=== PATIENT | male | born 1960 | race Caucasian/White ===

== ENCOUNTER 2019-01-24 01:25 | Emergency (ER) | payer MEDICARE ==
[~2019-01-24] VITALS: Ht 170.2 cm; Wt 68.0 kg
[~2019-01-24 01:25] MED LIST: CARB200; CHLO25 PO; DILANTIN; HYDACE10B PO; HYDACE5325 PO; OMEP20ER PO; OXYACE5T PO; RXHYD5325 PO; Roxicodone5 MG PO
== END 2019-01-24 04:30 | disposition home or self-care (01) ==
LOC: ER 01:25
DX: F10.10 Alcohol abuse, uncomplicated (principal); Z79.899 Other long term (current) drug therapy
CPT/HCPCS: 99282

== ENCOUNTER 2019-01-24 07:18 | Emergency (ER) | payer MEDICARE ==
[~2019-01-24] VITALS: Ht 170.2 cm; Wt 68.0 kg
== END 2019-01-24 07:52 | disposition left against medical advice (07) ==
LOC: ER 07:18
DX: Z53.21 Procedure and treatment not carried out due to patient leaving prior to being seen by health care provider (principal)

== ENCOUNTER 2019-04-17 06:02 | Emergency (ER) | payer MEDICARE ==
[~2019-04-17] VITALS: Ht 167.6 cm; Wt 65.8 kg
== END 2019-04-17 06:20 ==
LOC: ER 06:02
DX: F10.129 Alcohol abuse with intoxication, unspecified (principal); F17.200 Nicotine dependence, unspecified, uncomplicated
CPT/HCPCS: 99282

== ENCOUNTER 2024-08-15 17:00 | Inpatient (IN) | payer MEDICARE ==
[~2024-08-15] VITALS: Ht 167.6 cm; Wt 58.2 kg
[~2024-08-15 17:00] MED LIST changes: +Colace250 MG PO; +HYDR1TAB94 PO; +METO25ER PO; +NICO21TP TOP; +WARF5 PO
[2024-08-15 17:56] LABS: BASOPHILS ABSOLUTE AUTO 0.09 K/mm3 (0.00-0.23); BASOPHILS PERCENT AUTO 2 % (0-2); EOSINOPHILS ABSOLUTE AUTO 0.09 K/mm3 (0.00-0.68); EOSINOPHILS PERCENT AUTO 2 % (0-6); Hematocrit 39.9 % (37.0-53.0); Hemoglobin 13.9 g/dL (13.5-17.5); IMMATURE GRAN ABSOLUTE AUTO 0.03 K/mm3 (0.00-0.10); IMMATURE GRAN PERCENT AUTO 1 % (0-1); LYMPHOCYTES ABSOLUTE AUTO 0.34 K/mm3 (0.84-5.20); LYMPHOCYTES PERCENT AUTO 9 % (21-46); MONOCYTES ABSOLUTE AUTO 0.52 K/mm3 (0.16-1.47); MONOCYTES PERCENT AUTO 14 % (4-13); Mean Corpuscular HGB 31.6 pg (26.0-34.0); Mean Corpuscular HGB Conc 34.8 g/dL (31.5-36.5); Mean Corpuscular Volume 91 fL (80-100); Mean Platelet Volume 12.7 fL (9.1-12.4); NEUTROPHILS ABSOLUTE AUTO 2.68 K/mm3 (1.96-9.15); NEUTROPHILS PERCENT AUTO 71 % (41-73); Platelet Count 70 K/mm3 (150-400); RDW Coefficient Variation 17.4 % (11.7-14.2); RDW Standard Deviation 57.5 fL (35.1-46.3); White Blood Cell Count 3.75 K/mm3 (4.00-11.30)
[2024-08-15 18:15] LABS: Albumin, Blood 2.9 g/dL (3.4-5.0); Albumin/Globulin Ratio 0.6 (0.8-1.8); Bun/Creatinine Ratio 20.8 (12.0-20.0); Calcium, Blood 9.5 mg/dL (8.5-10.1); Creatinine, Blood 0.77 mg/dL (0.60-1.20); Potassium, Blood 4.2 mmol/L (3.5-5.5); Total Protein, Blood 7.9 g/dL (6.4-8.2)
[2024-08-15] MEDS ORDERED: PHENobarbitaL sodium 130 MG/ML VIAL IV ONE ×2 (19:20→21:20)
[2024-08-15 19:37] LABS: International Normalized Ratio 1.43; Prothrombin Time Results 14.9 Sec (9.7-11.5)
[2024-08-15 19:44] LABS: Ethanol (Alcohol), Blood, Med <3 mg/dL
[2024-08-15 19:57] LABS: Acetaminophen, Random <2.0 ug/mL (10.0-30.0); Salicylate <1.7 mg/dL (2.8-20.0)
[2024-08-15] MEDS ORDERED: PHENobarbital Sodium 65MG / ML 1ML Vial IV ONE (23:10)
[2024-08-15] MEDS ORDERED: FLU VACC TS2024-25(6MOS UP)/PF 45 MCG/0.5 ML SYRINGE IM ONE (23:35)
[2024-08-15] MEDS ORDERED: ChlordiazePOXIDE 25 MG Cap PO PRN ×2 (23:35→23:40)
[2024-08-15] MEDS ORDERED: LORazepam 2 MG/ML 1ML Injection IV PRN (23:40)
[2024-08-16] VITALS (7 sets, daily range): BP systolic 92–115; BP diastolic 59–88
[2024-08-16] MEDS ORDERED: Thiamine HCl 100 MG in NS 50 ML IV SCH (00:14)
[2024-08-16] MEDS ORDERED: Folic Acid 1 MG in NS 50 ML IV SCH (00:14)
[2024-08-16] MEDS ORDERED: LORazepam 2 MG/ML 1ML Injection IV PRN ×2 (01:00)
[2024-08-16] MEDS ORDERED: NS 1,000 ML IV SCH (01:00)
[2024-08-16] MEDS ORDERED: NS 250 ML IV PRN (01:30)
--- NOTE | 2024-08-16 01:33 | NUR ---
ASSUMED CARE PT IS ALERT AND ORIENTED X2-3; PT BELIEVED HE WAS IN [facility] INITIALLY, WAS REORIENTED, AND NOW CORRECTLY STATES LOCATION. PT FOLLOWS COMMANDS APPROPRIATELY AND IS ABLE TO MAKE NEEDS KNOWN. DENIES CP, SOB, AND NAUSEA AT THIS TIME; CIWA <8. RESTING QUIETLY WATCHING TV AT THIS TIME W/ BED ALARM ON. PT STATES LAST DRINK WAS 2 DAYS AGO, BUT THEN STATES THAT HE HAS BEEN IN [facility] FOR 4 DAYS; CLARIFIED HE HASN'T DRANK SINCE BEFORE HE WAS JAILED.
--- NOTE | 2024-08-16 01:36 | NUR ---
ADMISSION HX ADMISSION HX COMPLETE PER PT, BUT PT IS POOR HISTORIAN.
[2024-08-16 01:56] LABS: BASOPHILS ABSOLUTE AUTO 0.06 K/mm3 (0.00-0.23); BASOPHILS PERCENT AUTO 2 % (0-2); EOSINOPHILS ABSOLUTE AUTO 0.08 K/mm3 (0.00-0.68); EOSINOPHILS PERCENT AUTO 3 % (0-6); Hematocrit 36.2 % (37.0-53.0); Hemoglobin 12.6 g/dL (13.5-17.5); IMMATURE GRAN ABSOLUTE AUTO 0.02 K/mm3 (0.00-0.10); IMMATURE GRAN PERCENT AUTO 1 % (0-1); LYMPHOCYTES ABSOLUTE AUTO 0.33 K/mm3 (0.84-5.20); LYMPHOCYTES PERCENT AUTO 12 % (21-46); MONOCYTES ABSOLUTE AUTO 0.43 K/mm3 (0.16-1.47); MONOCYTES PERCENT AUTO 16 % (4-13); Mean Corpuscular HGB 31.8 pg (26.0-34.0); Mean Corpuscular HGB Conc 34.8 g/dL (31.5-36.5); Mean Corpuscular Volume 91 fL (80-100); NEUTROPHILS ABSOLUTE AUTO 1.86 K/mm3 (1.96-9.15); NEUTROPHILS PERCENT AUTO 67 % (41-73); Platelet Count 54 K/mm3 (150-400); RDW Coefficient Variation 17.6 % (11.7-14.2); RDW Standard Deviation 58.3 fL (35.1-46.3); Red Blood Cell Count 3.96 M/mm3 (4.30-5.90); White Blood Cell Count 2.78 K/mm3 (4.00-11.30)
[2024-08-16 02:19] LABS: Magnesium, Blood 1.2 mg/dL (1.6-2.4)
[2024-08-16 02:46] LABS: Creatinine, Blood 0.63 mg/dL (0.60-1.20); Potassium, Blood 3.1 mmol/L (3.5-5.5); Total Protein, Blood 7.1 g/dL (6.4-8.2)
[2024-08-16 02:47] LABS: Albumin, Blood 2.7 g/dL (3.4-5.0); Albumin/Globulin Ratio 0.6 (0.8-1.8); Globulin, Blood 4.4 g/dL (2.2-4.0)
[2024-08-16] MEDS ORDERED: Potassium Chl 20MEQ/Water100ML 100 ML IV ONE (02:55)
[2024-08-16] MEDS ORDERED: Magnesium Sulf 2 GM/Water 50ML 50 ML IV ONE (02:55)
[2024-08-16 02:57] LABS: Bilirubin, Total 16.7 mg/dL (0.1-1.0); Bun/Creatinine Ratio 22.2 (12.0-20.0)
--- NOTE | 2024-08-16 06:26 | NUR ---
SHIFT SUMMARY NO ACUTE EVENTS SINCE LAST NOTE. PT EASILY REORIENTABLE, CALM, AND COOPERATIVE. CIWA CONTINUES TO REMAIN <8 AT THIS TIME. FOLLOWS COMMANDS AND MAKES NEEDS KNOWN.
--- NOTE | 2024-08-16 08:00 | NUR ---
ASSUMPTION OF CARE THIS RN ASSUMED CARE OF PT AT 0700 THIS AM FOLLOWING BEDSIDE SHIFT REPORT WITH NOC RN. UPON INITIAL ASSESSMENT, PT IS DOING WELL. ALERT & ORIENTED, PLEASANT. SLIGHTLY TACHY WITH HR 100'S. BP STABLE. TOLERATING REGULAR DIET, EATING INDEPENDENTLY. PT LABS APPEAR PANCYTOPENIC - MD NOTIFIED. FOLLOW UP LABS ORDERED AND DRAWN.
[2024-08-16] MEDS ORDERED: Enoxaparin 40 MG/0.4 ML SYR SC SCH (09:00)
[2024-08-16] MEDS ORDERED: Nicotine 21 MG PATCH TOP SCH (09:00)
[2024-08-16 11:56] LABS: Bun/Creatinine Ratio 16.7 (12.0-20.0); Calcium, Blood 8.6 mg/dL (8.5-10.1); Creatinine, Blood 0.66 mg/dL (0.60-1.20); Magnesium, Blood 1.5 mg/dL (1.6-2.4); Potassium, Blood 3.1 mmol/L (3.5-5.5)
[2024-08-16 13:31] LABS: U Amphetamine Screen DETECTED; U Methamphetamine Screen DETECTED
[2024-08-16 13:32] LABS: U Barbituate Screen DETECTED; U Benzodiazapine Screen DETECTED; U Buprenorphine Screen Not Detected; U Cannabinoids Screen Not Detected; U Cocaine Screen Not Detected; U Methadone Screen Not Detected; U Opiates Screen Not Detected; U Oxycodone Screen Not Detected; U Phencyclidine Screen Not Detected
[2024-08-16] MEDS ORDERED: Magnesium Sulf 2 GM/Water 50ML 50 ML IV STA (14:29)
[2024-08-16] MEDS ORDERED: Potassium Chl 20MEQ/Water100ML 100 ML IV SCH (14:30)
[2024-08-16] MEDS ORDERED: OxyCODONE HCL 5 MG TAB PO PRN (15:20)
[2024-08-16] MEDS ORDERED: Acetaminophen 325 MG TABLET PO PRN (15:20)
[2024-08-16 15:35] LABS: Percent Saturation 58.8 % (20.0-50.0)
--- NOTE | 2024-08-16 17:36 | NUR ---
SHIFT SUMMARY: - DOWNGRADE TO MEDICAL WITH TELE - SR-ST ON TELE - PAIN MEDS ADDED PRN D/T RUQ PAIN, PAIN LEVEL DECREASE FROM 5 TO 2 WITH TYLENOL. - ELECTROLYTE REPLACEMENTS TODAY. TOTAL OF 2GM MAGNESIUM, 60 MEQ KCL - OLIGURIC, DARK URINE. - ACUTE PANCYTOPENIA, MD AWARE. FOLLOW UP LABS DONE.
[2024-08-17 03:46] VITALS: BP 94/76
[2024-08-17 05:16] LABS: BASOPHILS ABSOLUTE AUTO 0.11 K/mm3 (0.00-0.23); BASOPHILS PERCENT AUTO 3 % (0-2); EOSINOPHILS PERCENT AUTO 3 % (0-6); Hematocrit 33.9 % (37.0-53.0); Hemoglobin 11.6 g/dL (13.5-17.5); IMMATURE GRAN ABSOLUTE AUTO 0.01 K/mm3 (0.00-0.10); IMMATURE GRAN PERCENT AUTO 0 % (0-1); LYMPHOCYTES ABSOLUTE AUTO 0.33 K/mm3 (0.84-5.20); LYMPHOCYTES PERCENT AUTO 10 % (21-46); MONOCYTES ABSOLUTE AUTO 0.53 K/mm3 (0.16-1.47); MONOCYTES PERCENT AUTO 16 % (4-13); Mean Corpuscular HGB 31.6 pg (26.0-34.0); Mean Corpuscular HGB Conc 34.2 g/dL (31.5-36.5); Mean Corpuscular Volume 92 fL (80-100); NEUTROPHILS ABSOLUTE AUTO 2.15 K/mm3 (1.96-9.15); NEUTROPHILS PERCENT AUTO 67 % (41-73); Platelet Count 60 K/mm3 (150-400); RDW Coefficient Variation 17.9 % (11.7-14.2); RDW Standard Deviation 59.6 fL (35.1-46.3); Red Blood Cell Count 3.67 M/mm3 (4.30-5.90); White Blood Cell Count 3.23 K/mm3 (4.00-11.30)
[2024-08-17 05:21] LABS: Mean Platelet Volume 12.8 fL (9.1-12.4)
[2024-08-17 05:37] LABS: Albumin, Blood 2.1 g/dL (3.4-5.0); Anion Gap 12 mmol/L (3-11); Blood Urea Nitrogen 12 mg/dL (8-24); CO2, Blood 20 mmol/L (21-32); Chloride, Blood 103 mmol/L (98-108); Creatinine, Blood 0.52 mg/dL (0.60-1.20); Glomerular Filtration Rate 113 (60-); Glucose, Blood 105 mg/dL (70-99); Magnesium, Blood 1.6 mg/dL (1.6-2.4); Phosphorus, Blood 2.3 mg/dL (2.5-4.9); Potassium, Blood 3.9 mmol/L (3.5-5.5); Sodium, Blood 131 mmol/L (136-145)
[2024-08-17 07:13] VITALS: BP 104/78
[2024-08-17] MEDS ORDERED: Sodium Phosphate 15 MM in Dextrose 5% 250 ML IV STA (08:12)
[2024-08-17] MEDS ORDERED: TM-VITE RX T1000 MCG PO (14:04)
[2024-08-17 17:01] LABS: HEPATITIS A ANTIBODY, IGM Negative (Negative); HEPATITIS B CORE ANTIBODY, IGM Negative (Negative); HEPATITIS B SURFACE ANTIGEN Negative (Negative); HEPATITIS C AB CIA INTERP Negative (Negative); HEPATITIS C ANTIBODY CIA INDEX 0.09 IV
--- NOTE | 2024-08-17 17:35 | NUR ---
DISHCARGE NOTE PATIENT A/OX3, ABLE TO MAKE NEEDS KNOWN. UNAWARE OF DATE TODAY, BUT KNEW WHAT YEAR AND MONTH. CIWA SCORE OF 3 THIS AM, BILATERAL UPPER ARM TREMORS NOTED. DENIES PAIN THIS SHIFT. TELEMETRY, PIV, AND POWERGLIDE REMOVED PRIOR TO DISCHARGE. PACE MANAGER M[employer]UAL FUND EDUCATED PATIENT REGARDING ALCOHOL DETOX PROGRAMS AND ALSO INFORMED GUEST SERVICES AGENT THAT HE WISHES TO DISCHARGE TO HIS BROTHER'S HOUSE IN [place]. PATIENT REQUESTED MEDICATION PRESCRIPTIONS BE SENT TO [facility], MEDS FAXED. PATIENT EDUCATED REGARDING NEEDING PRIMARY CARE PROVIDER AND TO SET UP AN APPOINTMENT WITHIN 1-2 WEEKS AND TO TAKE MEDICATIONS PRESCIRBED, INCLUDING VITAMINS. PATIENT AGREEABLE TO PLAN. NO OTHER CONCERNS AT THIS TIME. PATIENT WHEELED TO [facility] VIA [facility] STAFF.
== END 2024-08-17 17:25 | disposition home or self-care (01) | DRG 897 ==
LOC: ER 17:00 → PCU 17:01 → ERHOLD 17:01 → PCU 08-16 00:35 → MEDS 08-16 14:48 → PCU 08-16 14:49 → MEDS 08-16 22:14
PROVIDERS: Emergency Medicine; Family Medicine; Student in an Organized Health Care Education/Training Program; ADMIT Internal Medicine
DX: F10.239 Alcohol dependence with withdrawal, unspecified (principal); D61.818 Other pancytopenia; K76.6 Portal hypertension; K70.31 Alcoholic cirrhosis of liver with ascites; E87.6 Hypokalemia; S01.112A Laceration without foreign body of left eyelid and periocular area, initial encounter; K80.20 Calculus of gallbladder without cholecystitis without obstruction; E83.42 Hypomagnesemia; D69.6 Thrombocytopenia, unspecified; M54.2 Cervicalgia; Y90.0 Blood alcohol level of less than 20 mg/100 ml; G89.29 Other chronic pain; F17.210 Nicotine dependence, cigarettes, uncomplicated; Z98.890 Other specified postprocedural states; W10.9XXA Fall (on) (from) unspecified stairs and steps, initial encounter
CPT/HCPCS: 36415; 70450; 72125; 76705; 80048; 80053; 80069; 80074; 80320; 82140; 82728; 83540; 83550; 83690; 83735; 85025; 85610; 85730; 93005; 93010; 96365; 96372; 96374; 96375; 96376; 99285-25; A9270; C1751; G0378; G0480; J1650; J2560; J3411; J3475; J3480; J7050; J7060

== ENCOUNTER 2024-08-19 16:44 | Inpatient (IN) | payer MEDICARE ==
[~2024-08-19] VITALS: Ht 167.6 cm; Wt 70.8 kg
[~2024-08-19 16:44] MED LIST changes: +TM-VITE RX T1000 MCG PO
[2024-08-19 17:18] LABS: BASOPHILS PERCENT AUTO 2 % (0-2); EOSINOPHILS ABSOLUTE AUTO 0.13 K/mm3 (0.00-0.68); EOSINOPHILS PERCENT AUTO 2 % (0-6); Hematocrit 35.7 % (37.0-53.0); Hemoglobin 12.5 g/dL (13.5-17.5); IMMATURE GRAN ABSOLUTE AUTO 0.04 K/mm3 (0.00-0.10); IMMATURE GRAN PERCENT AUTO 1 % (0-1); LYMPHOCYTES ABSOLUTE AUTO 0.51 K/mm3 (0.84-5.20); LYMPHOCYTES PERCENT AUTO 9 % (21-46); MONOCYTES ABSOLUTE AUTO 0.77 K/mm3 (0.16-1.47); MONOCYTES PERCENT AUTO 14 % (4-13); Mean Corpuscular HGB 31.8 pg (26.0-34.0); Mean Corpuscular Volume 91 fL (80-100); Mean Platelet Volume 12.2 fL (9.1-12.4); NEUTROPHILS ABSOLUTE AUTO 3.95 K/mm3 (1.96-9.15); NEUTROPHILS PERCENT AUTO 72 % (41-73); Platelet Count 118 K/mm3 (150-400); RDW Coefficient Variation 18.7 % (11.7-14.2); Red Blood Cell Count 3.93 M/mm3 (4.30-5.90)
[2024-08-19] MEDS ORDERED: CefTRIAXone Sodium 2,000 MG in NS 100 ML IV ONE (17:25)
[2024-08-19 17:33] LABS: Albumin, Blood 2.3 g/dL (3.4-5.0); Albumin/Globulin Ratio 0.5 (0.8-1.8); Bilirubin, Total 13.4 mg/dL (0.1-1.0); Bun/Creatinine Ratio 16.5 (12.0-20.0); Calcium, Blood 7.7 mg/dL (8.5-10.1); Creatinine, Blood 0.73 mg/dL (0.60-1.20); Globulin, Blood 4.4 g/dL (2.2-4.0); Potassium, Blood 3.1 mmol/L (3.5-5.5); Total Protein, Blood 6.7 g/dL (6.4-8.2)
[2024-08-19 17:34] LABS: Source, Urine Clean Catch
[2024-08-19 17:45] LABS: Blood, Urine 1+ (Neg); Color, Urine Amber (P-Yellow); Glucose Qualitative, Urine Neg (Neg); Ketones, Urine Neg (Neg); Leukocyte Esterase, Urine 1+ (Neg); Nitrite, Urine Neg (Neg); Protein, Urine 2+ (Neg); Specific Gravity, Urine 1.015 (1.003-1.022); Urobilinogen, Urine 4+ (Normal)
[2024-08-19 17:50] LABS: Bilirubin, Urine 3+ (Neg)
[2024-08-19 17:55] LABS: Appearance, Urine Clear (Clear)
[2024-08-19 17:57] LABS: Bacteria Many /hpf; Squamous Epithelial Cells Rare /hpf (Few)
[2024-08-19 18:01] LABS: International Normalized Ratio 1.24; Prothrombin Time Results 13.1 Sec (9.7-11.5)
[2024-08-19] MEDS ORDERED: NS 1,000 ML IV SCH (18:05)
[2024-08-19 18:06] LABS: Albumin, Blood 2.2 g/dL (3.4-5.0); Albumin/Globulin Ratio 0.5 (0.8-1.8); Bilirubin, Direct 10.9 mg/dL (0.0-0.3); Bilirubin, Total 12.9 mg/dL (0.1-1.0); Globulin, Blood 4.4 g/dL (2.2-4.0); Magnesium, Blood 1.9 mg/dL (1.6-2.4); Phosphorus, Blood 1.9 mg/dL (2.5-4.9); Total Protein, Blood 6.6 g/dL (6.4-8.2)
[2024-08-19 18:54] LABS: U Amphetamine Screen DETECTED; U Barbituate Screen DETECTED; U Benzodiazapine Screen DETECTED; U Buprenorphine Screen Not Detected; U Cannabinoids Screen Not Detected; U Cocaine Screen Not Detected; U Methadone Screen Not Detected; U Methamphetamine Screen DETECTED; U Opiates Screen Not Detected; U Oxycodone Screen Not Detected; U Phencyclidine Screen Not Detected
[2024-08-19 20:09] LABS: Influenza A, PCR NEGATIVE (NEGATIVE); Influenza B, PCR NEGATIVE (NEGATIVE); Resp Syncytial Virus, PCR NEGATIVE (NEGATIVE); SARS-Cov-2 (COVID-19) PCR, MMC NEGATIVE (NEGATIVE)
[2024-08-19] MEDS ORDERED: Lactobacil 2-S.Thermo-Bifido 1 1 Cap PO SCH (21:00)
[2024-08-19] MEDS ORDERED: FLU VACC TS2024-25(6MOS UP)/PF 45 MCG/0.5 ML SYRINGE IM ONE (21:00)
[2024-08-19] MEDS ORDERED: Ondansetron HCl 2 MG / ML 2ML Vial IV PRN (21:00)
[2024-08-19] MEDS ORDERED: Potassium Chloride 20 MEQ/15 ML UDC PO ONE (21:00)
[2024-08-19] MEDS ORDERED: Magnesium Sulf 2 GM/Water 50ML 50 ML IV STA (21:11)
[2024-08-19] MEDS ORDERED: Potassium Chl 20MEQ/Water100ML 100 ML IV SCH (21:30)
[2024-08-19] MEDS ORDERED: Sodium Phosphate 15 MM in Dextrose 5% 250 ML IV SCH (21:30)
[2024-08-19] MEDS ORDERED: Warfarin Sodium 5 MG Tab PO ONE (21:40)
[2024-08-20 05:07] LABS: International Normalized Ratio 1.16; Prothrombin Time Results 12.3 Sec (9.7-11.5)
[2024-08-20 05:39] LABS: BASOPHILS ABSOLUTE AUTO 0.12 K/mm3 (0.00-0.23); BASOPHILS PERCENT AUTO 2 % (0-2); EOSINOPHILS ABSOLUTE AUTO 0.15 K/mm3 (0.00-0.68); EOSINOPHILS PERCENT AUTO 3 % (0-6); Hematocrit 34.5 % (37.0-53.0); Hemoglobin 12.2 g/dL (13.5-17.5); IMMATURE GRAN ABSOLUTE AUTO 0.07 K/mm3 (0.00-0.10); IMMATURE GRAN PERCENT AUTO 1 % (0-1); LYMPHOCYTES ABSOLUTE AUTO 0.41 K/mm3 (0.84-5.20); LYMPHOCYTES PERCENT AUTO 7 % (21-46); MONOCYTES ABSOLUTE AUTO 0.93 K/mm3 (0.16-1.47); MONOCYTES PERCENT AUTO 16 % (4-13); Mean Corpuscular HGB 31.7 pg (26.0-34.0); Mean Corpuscular HGB Conc 35.4 g/dL (31.5-36.5); Mean Corpuscular Volume 90 fL (80-100); NEUTROPHILS ABSOLUTE AUTO 4.27 K/mm3 (1.96-9.15); NEUTROPHILS PERCENT AUTO 72 % (41-73); RDW Coefficient Variation 18.7 % (11.7-14.2); RDW Standard Deviation 61.6 fL (35.1-46.3); Red Blood Cell Count 3.85 M/mm3 (4.30-5.90); White Blood Cell Count 5.95 K/mm3 (4.00-11.30)
[2024-08-20 05:43] LABS: Platelet Count 120 K/mm3 (150-400)
[2024-08-20 08:05] LABS: Albumin, Blood 2.1 g/dL (3.4-5.0); Albumin/Globulin Ratio 0.5 (0.8-1.8); Bilirubin, Total 12.5 mg/dL (0.1-1.0); Bun/Creatinine Ratio 17.6 (12.0-20.0); Calcium, Blood 7.9 mg/dL (8.5-10.1); Creatinine, Blood 0.57 mg/dL (0.60-1.20); Globulin, Blood 4.5 g/dL (2.2-4.0); Magnesium, Blood 1.9 mg/dL (1.6-2.4); Phosphorus, Blood 2.2 mg/dL (2.5-4.9); Potassium, Blood 4.5 mmol/L (3.5-5.5); Total Protein, Blood 6.6 g/dL (6.4-8.2)
[2024-08-20] MEDS ORDERED: Multivitamins 1 Tab PO SCH (09:00)
[2024-08-20] MEDS ORDERED: Thiamine HCl 100 MG Tab PO SCH (09:00)
[2024-08-20] MEDS ORDERED: Folic Acid 1 MG TAB PO SCH (09:00)
[2024-08-20] MEDS ORDERED: CefTRIAXone Sodium 1,000 MG in NS 100 ML IV SCH (18:00)
[2024-08-20] MEDS ORDERED: Warfarin Sodium 5 MG Tab PO ONE (18:00)
[2024-08-20 18:20] VITALS: BP 150/99
--- NOTE | 2024-08-20 19:04 | NUR ---
END OF SHIFT SUMMARY ASSUMED CARE AT 1800. PT ARRIVED VIA WHEELCHAIR, STATES HE NEEDED TO HAVE A BOWEL MOVEMENT. HE WAS ASSISTED TO THE BATHROOM BY THIS RN, PT WAS NOTED TO BE VERY TREMULOUS AND WEAK. BOWEL MOVEMENT WAS LOOSE AND WATERY. PT IS ALERT AND ORIENTED TO SELF, PLACE, AND MONTH, BUT NOT DAY OR TIME. PT DOES NOT KNOW HOW HE GOT HERE OR WHY IS HE IS HERE. PT HAS NOTABLE SKIN AND SCLERA JAUNDICE. HR IN 110S, BP ELEVATED. PT WAS SETTLED INTO BED. ABDOMINAL DISTENTION/ASCITES THAT PT STATES IS NORMAL FOR HIM, MODERATE TENDERNESS IN ABDOMEN. MODERATE MOTTLING NOTED ON BLE. PEDAL PULSES FAINT. NOTED CLUBBING ON FINGERNAILS. CRACKLES HEARD THROUGHOUT ALL LUNG CREWS. CIWA SCORE 12 AT 1845, PT NOT RESTING IN BED COMFORTABLE. GAVE REPORT TO ONCOMING RN.
[2024-08-20 19:29] VITALS: BP 130/93
[2024-08-20] MEDS ORDERED: LORazepam 1 MG Tab PO PRN ×2 (21:15→21:20)
[2024-08-20] MEDS ORDERED: ChlordiazePOXIDE 25 MG Cap PO PRN ×2 (21:15→21:20)
[2024-08-20] MEDS ORDERED: Loperamide HCl 2 MG Cap PO PRN (21:20)
[2024-08-20] MEDS ORDERED: LORazepam 2 MG/ML 1ML Injection IV PRN (21:20)
[2024-08-20] MEDS ORDERED: LORazepam 2 MG/ML 1ML Injection IM PRN (21:20)
[2024-08-20] MEDS ORDERED: Ibuprofen 400 MG Tab PO PRN (21:20)
[2024-08-20] MEDS ORDERED: NS 1,000 ML IV SCH (22:00)
[2024-08-20 23:14] VITALS: BP 119/84
[2024-08-21 04:01] VITALS: BP 121/88
[2024-08-21 04:40] LABS: International Normalized Ratio 2.07
--- NOTE | 2024-08-21 04:56 | NUR ---
SHIFT SUMMARY; NO ACUTE CHANGE FOR THE SHIFT VITALS HAS BEEN STABLE, PT DENIED CEHST PAIN/PRESSURE, PT C/O ABD TENDERNESS WORSENDS WITH TAKING A DEEP BREATH AND COUGHING. PT HAS AMBULATED TO THE BATHROOM 1PA, VIA WALKER. PT HAS BEEB COOPERATIVE AND PLEASANT, A&OX3, CIWA BETWEEN 4-9 MEDICATED ONCE FOR HEADACHE WITH TYLENOL AND LIBRIUM TO HELP WITH THE TREMORS. PFOLEY DRAINING DARK YELLOW/ORANGE URINE VIA GRAVITY, NS STARTED AT 150 MLS/HR. LABS DRANW THIS MORNING AWAITING TO RESULT AT THIS TIME.
[2024-08-21 07:50] VITALS: BP 105/75
[2024-08-21] MEDS ORDERED: TraMADol HCl 50 MG Tab PO PRN (09:30)
[2024-08-21] MEDS ORDERED: NS 1,000 ML IV SCH (10:45)
[2024-08-21 12:13] VITALS: BP 129/81
--- NOTE | 2024-08-21 15:54 | NUR ---
TRANSFERED TO MEDICAL FLOOR SHIFT SUMMARY: PT A&OX4. FOLLOWS COMMANDS AND MAKES NEEDS KNOWN TO STAFF. PT SLEPT FOR MOST OF THE SHIFT. PT WOKE UP OCCASIONALLY DURING VITAL SIGNS, AND MED ADMINISTRATION. PT REMAINED ON RA AND VITAL SIGNS WERE STABLE ALL DAY. PT PT AMBULATED TO THE BATHROOM 2 TIMES WITH THE WALKER WITH 1P ASSIST. BECAME SOB WITH ACTIVITY. REPORTS SOB THAT IS NORMAL FOR HIM. PROVIDER AWARE OF CP. NO SIGNIFICANT EVENTS HAPPENED DURING THIS SHIFT. REPORT CALLED TO FLOOR RN. BELONGINGS COLLECTED AND PT TRANSPORTED TO ROOM 306 VIA GURNEY BY MAYCOL.
--- NOTE | 2024-08-21 16:13 | NUR ---
TRANFER NOTE: PT A PCU TRANSFER, REPORT RECIEVED FROM FESTUS SARABIA. PT ORIENTED TO THE ROOM, FLUIDS CONTINUE TO INFUSE. PT REPOSITIONED AND PROVIDED A WARM BLANKET. MALE PURWICK REMOVED.
--- NOTE | 2024-08-21 17:52 | NUR ---
SHIFT SUMMARY PT A TRANSFER LATE THIS AFTERNOON, AOX4. 1 ASSIST WITH FWW TO THE BR. BRIEF IN PLACE, SMALL INCONTINENT VOID BUT ASKS TO GO TO THE BR. SLEPT MOSTLY SINCE TRANSFER. SOB WITH AMBULATION. REPOSITIONS SELF IN BED. NO CP OR PAIN SINCE TRANSFER. BA ON. CALL LIGHT WITHIN REACH, BED LOCKED AND IN THE LOWEST POSITION. WILL REPORT TO ONCOMING NURSE.
[2024-08-21] MEDS ORDERED: Warfarin Sodium 2.5 MG Tab PO ONE (18:00)
[2024-08-21 19:22] VITALS: BP 110/85
[2024-08-21] MEDS ORDERED: DiphenhydrAMINE HCL 25 MG Cap PO ONE (21:40)
[2024-08-22 03:35] VITALS: BP 112/80
[2024-08-22 05:11] LABS: BASOPHILS ABSOLUTE AUTO 0.13 K/mm3 (0.00-0.23); BASOPHILS PERCENT AUTO 3 % (0-2); EOSINOPHILS ABSOLUTE AUTO 0.14 K/mm3 (0.00-0.68); EOSINOPHILS PERCENT AUTO 3 % (0-6); Hematocrit 32.9 % (37.0-53.0); Hemoglobin 11.5 g/dL (13.5-17.5); IMMATURE GRAN ABSOLUTE AUTO 0.02 K/mm3 (0.00-0.10); IMMATURE GRAN PERCENT AUTO 1 % (0-1); LYMPHOCYTES ABSOLUTE AUTO 0.42 K/mm3 (0.84-5.20); LYMPHOCYTES PERCENT AUTO 10 % (21-46); MONOCYTES ABSOLUTE AUTO 0.67 K/mm3 (0.16-1.47); MONOCYTES PERCENT AUTO 16 % (4-13); Mean Corpuscular Volume 92 fL (80-100); Mean Platelet Volume 12.7 fL (9.1-12.4); NEUTROPHILS ABSOLUTE AUTO 2.72 K/mm3 (1.96-9.15); NEUTROPHILS PERCENT AUTO 66 % (41-73); Platelet Count 111 K/mm3 (150-400); RDW Coefficient Variation 18.9 % (11.7-14.2); RDW Standard Deviation 62.9 fL (35.1-46.3); Red Blood Cell Count 3.59 M/mm3 (4.30-5.90)
[2024-08-22 05:27] LABS: Albumin/Globulin Ratio 0.5 (0.8-1.8); Bilirubin, Total 11.3 mg/dL (0.1-1.0); Bun/Creatinine Ratio 29.8 (12.0-20.0); Calcium, Blood 8.1 mg/dL (8.5-10.1); Creatinine, Blood 0.57 mg/dL (0.60-1.20); Globulin, Blood 3.8 g/dL (2.2-4.0); Total Protein, Blood 5.8 g/dL (6.4-8.2)
[2024-08-22 07:50] VITALS: BP 124/97
[2024-08-22] MEDS ORDERED: B-1100 M1 PO (12:02)
[2024-08-22 15:21] VITALS: BP 113/89
--- NOTE | 2024-08-22 18:00 | NUR ---
SHIFT SUMMARY PT A&OX3. PT COULDN'T RECALL DATE. PT ADMITTED DUE TO UTI AND SUBSTANCE WITHDRAWL. PT HAS MINIMAL TREMORS, NO REPORT OF HAULUCINATIONS AND HEADACHE. PT HAS GENERALIZED WEAKNESS AND IS A 1-2 ASSIST WITH WALKER. PT WORKED WITH PHYSICAL THERAPY TODAY. PT REPORTS GENERALIZED PAIN, PAIN MANAGED PER EMAR. PT ON ROOM AIR. PT HAS ACITES WITH DISTENDED ABDOMEN, PT REPORTS SOB, WHEN LAYING. AT REST HE IS TACHYPNEA. SATS ARE 95%. PT EATS ADEQUATE. PT FREQUENTLY NEEDS TO HAVE BM, AND URINATE. PT APPEARS TO BE JAUNDICE, AND FINGERNAILS HAS SIGNS OF CLUBBING. PLAN IS FOR PT TO GO TO SNF OR REHAB FACILITY DUE TO WEAKNESS.
[2024-08-22 19:40] VITALS: BP 108/85
[2024-08-22 19:54] VITALS: BP 115/88
[2024-08-23 02:52] VITALS: BP 132/92
[2024-08-23] MEDS ORDERED: Ipratropium/Albuterol SulF 2.5-0.5MG/3 ML Amp INH PRN (05:40)
--- NOTE | 2024-08-23 06:33 | NUR ---
Shift Summary Pt had elevated CIWA score at the start of the shift. He had tremors, moderate+ headache, confusion and some nausea. Medicated with Ativan 2 mg PO Q2 twice. Pt was still somewhat restless but most symptoms were improved. He has also been wheezy and short of breath. I called the hospitalist who ordered BD protocol and then called 3rd floor RT to assess. They ordered duo-neb and are waiting for pharmacy approval and shift change. Pt has urinary urgancy with small voids. His urine is a very dark tea color. I encouraged drinking and put him on IV fluids as ordered. He is AOx1-2 last night, unsure of the date and not knowing where he was or his situation at times. Bed alarm has been on and gone off a few times. Pt placed on 2L O2 NC as he was very short of breath with any exertion and did have SPO2 desaturation down to 80 after attempted ambulation.
[2024-08-23 07:44] VITALS: BP 127/95
--- NOTE | 2024-08-23 09:13 | NUR ---
THIS NURSE, ACTING BREAK NURSE AT THIS TIME IN TO GIVE PATIENT HIS MORNING MEDICATIONS WAS SLEEPING SOUNDLY AND NOT WAKING UP ENOUGH TO TAKE HIS MEDICATIONS PER EMAR. PRIMARY NURSE RUDDY NOTIFIED. PRIMARY NURSE TO ATTEMT TO GIVE WHEN PT IS MORE ALERT
[2024-08-23] MEDS ORDERED: Furosemide 10 MG / ML 2ML Vial IV SCH (15:00)
[2024-08-23 16:20] VITALS: BP 108/83
--- NOTE | 2024-08-23 19:20 | NUR ---
SHIFT SUMMARY PT CIWA SCORED A 5. PT WAS DROWSEY THIS AM AND SEDATED MOST OF DAY. PT WAS INC OF URINE AND STOOL. PT NOW HAS CONDOM CATH ON. DURING SHIFT PT HAD SOB, ND SHOWED SIGNS OF FLUID OVERLOAD, CALLED CEASAR MCDONOUGH D/C FLUIDS. RESPIRATORY CARE CAME AND GAVE PT TREATMENT. PT TRIED TO AMBULATE TO TOILET WITH ASSISTANCE. PT IS TOO WEAK TO AMBULATE. BED ALARM IS ON. PT MAKES NEEDS KNOWN, CALL LIGHT IN REACH. PLAN IS TO DISCHARGE FROM HOSPITAL WHEN STABLE.
[2024-08-23 20:53] VITALS: BP 122/79
[2024-08-24 03:41] VITALS: BP 120/103
--- NOTE | 2024-08-24 05:37 | NUR ---
Shift Summary Pt still too weak to ambulate, purewick in place to drain incontinent voids. Lung sounds have light wheezes, worse in the left lobe. Wheezyness is improved from last night. Lung sounds are also wet and pt has a weak cough, unable to effectively clear secretions. He started the night off with a low CIWA score then around 2330 he was having full visual and audio hallucinations and was somewhat agitated. With CIWA score of 19 I gave 2 mg of IV Ativan, pt congnition slowly improved t/o the night. He has been AOx1-2, unsure of his place, the date and why he is here. No further withdrawal medications required this shift, CIWA stable around 7 for the remainer of the night. No further hallucinations. Purewick was changed and josé manuel care provided.
[2024-08-24 07:20] VITALS: BP 123/74
[2024-08-24 08:40] LABS: Albumin, Blood 2.2 g/dL (3.4-5.0); Albumin/Globulin Ratio 0.5 (0.8-1.8); Bilirubin, Total 12.9 mg/dL (0.1-1.0); Bun/Creatinine Ratio 25.4 (12.0-20.0); Calcium, Blood 8.8 mg/dL (8.5-10.1); Creatinine, Blood 0.63 mg/dL (0.60-1.20); Globulin, Blood 4.2 g/dL (2.2-4.0); Total Protein, Blood 6.4 g/dL (6.4-8.2)
--- NOTE | 2024-08-24 13:35 | NUR ---
CALL TO PALLIATIVE CARE TO UPDATE ON PATIENT CONDITION. FESTUS MCCABE, WILL REACH OUT TO DR MCDONOUGH REGARDING RECOMMENDATIONS.
[2024-08-24] MEDS ORDERED: Haloperidol Lactate 2 MG / ML 15ML BTL PO PRN (15:30)
[2024-08-24] MEDS ORDERED: Atropine Sulfate 1% Opth Soln 2ML BTL SL PRN (15:35)
[2024-08-24] MEDS ORDERED: Morphine Sulfate 20 MG/1ML 1 ML Oral Syringe SL PRN (15:35)
[2024-08-24] MEDS ORDERED: LORazepam 1 MG Tab PO PRN (15:35)
[2024-08-24 15:38] VITALS: BP 122/60
--- NOTE | 2024-08-24 18:18 | NUR ---
SPOKE WITH PATIENT'S BROTHER, CAESAR ([phone]), RETURNING HIS PHONE CALL. LET HIM KNOW PATIENT HAS OPTED TO INITIATE COMFORT MEASURES AND CEASE LIFE-SUSTAINING AND EXTRAORDINARY MEASURES. CAESAR WILL CONTACT PATIENT'S DAUGHTER, TOMORROW, AND WILL ALSO TRY TO COME SEE PATIENT TOMORROW. PATIENT DOES NOT HAVE A PREFERRED HOME, BUT DOES REQUEST THE HOME WORK WITH "[employer]" HE WOULD LIKE TO DONATE MUCH OF HIS BODY TO [employer] POSSIBLE. WILL PASS ON TO OPERATIONS COORDINATOR, PALLIATIVE CARE AND CHARGE.
--- NOTE | 2024-08-24 18:22 | NUR ---
END OF SHIFT SUMMARY: DIFFICULT TO ROUSE THIS MORNING, BUT MORE ALERT THIS AFTERNOON. ORIENTED TO CURRENT SITUATION AND RECOGNIZES THE SEVERITY OF HIS MORTALITY. LONG DISCUSSION WITH DR. MCDONOUGH DURING WHICH PATIENT AGREED TO CESSATION OF EXTRAORDINARY MEASURES AND TO PURSUE COMFORT MEASURES. UNABLE TO AMBULATE AT THIS TIME. PUREWICK IN PLACE DUE TO LARGE DOSES OF FUROSEMIDE AND HIS JUMPING OUT OF BED WHEN HE NEEDS TO VOID; PATENT AND DRAINING COLA-COLORED URINE TO SUCTION. TELE DC d THIS AFTERNOON ONCE PLAN WAS CHANGED TO COMFORT CARE. NO C / O PAIN OR DISCOMFORT. DIET CHANGED TO REGULAR; PATIENT REQUESTING SOFT, BITE-SIZED AND [id number] FOODS. SPOKE WITH AND NOTIFIED BROTHER OF PATIENT S CHANGE IN STATUS. BROTHER WILL NOTIFY PATIENT S DAUGHTER AND TRY TO COME VISIT TOMORROW. [facility] LIKE [facility] NOTIF[facility] OF HIS HE D LIKE TO DONATE TO SCI[employer], MUCH POSSIBLE, IF VIABLE. BED IN LOWEST POSITION. CALL LIGHT WITHIN REACH. ALL NEEDS MET. REPORT TO ONCOMING NURSE.
--- NOTE | 2024-08-25 00:36 | NUR ---
HIFT SUMMARY NOC PT ON COMFORT CARE. A/O X 4. HAS BEEN ASLEEP FOR MAJORITY OF SHIFT. HAS 1L/NC O2 ON FOR COMFORT. PUREWICK IN PLACE FOR INCONTINENCE. PG IN ROBERT. CIWA SCORE 3.PT CURRENTLY RESTING WITH BED IN LOWEST POSITION, AND CALL LIGHT WITHIN REACH.
--- NOTE | 2024-08-25 18:48 | NUR ---
SHIFT SUMMARY; PATIENT RECEIVED ROXONAL FOR AIR HUNGER THROUGHOUT SHIFT. HE DID TRY AND GET OUT OF BED AT ONE POINT AND WAS MEDICATED WITH ATIVAN FOR AGITATION. MARIA C HAD STRONG FAMILY PRESENCE DURING DAY. BROTHER IS INVOLVED AND HE WILL BE MAKING DECISIONS FOR MARIA C. NO DC PLAN OF THIS WRITING.
--- NOTE | 2024-08-26 04:48 | NUR ---
COMFORT CARE SHIFT SUMMARY PATIENT HAS NOT BEEN ALERT AND ORIENTED. PATIENT HAS BEEN RESTING WITH INTERMITTENT BREATHING. PATIENT HAS BEEN MEDICATED FOR PAIN. PATIENT HAS BEEN MEDICATED FOR EXCESSIVE SECRETIONS THIS SHIFT. PATIENT HAS NOT COMPLAINED OF SOB, OR NAUSEA. BED IN LOCKED AND LOWEST POSITION.
[2024-08-26] MEDS ORDERED: Scopolamine Hydrobromide Patch TOP ONE (10:00)
[2024-08-26] MEDS ORDERED: Scopolamine Hydrobromide Patch TOP PRN (10:00)
--- NOTE | 2024-08-26 15:51 | NUR ---
SHIFT SUMMARY; ORAL CARE DONE ON PATIENT Q4 HOURS. SUCTION NEEDED. HE IS UN RESPONSIVE. FAMILY VISITS AND HE DOES NOT ROUSE TO VERBAL STIMULI. MEDICATED WITH 20MG ROXONAL Q 2 HOURS OR SOONER IF INDICATED FOR INCREASED WORK OF BREATHING. TURNING PATIENT Q 2HOURS. PROPPING UP ON PILLOWS FOR COMFORT AND TO PROTECT BONY PROMINENCES. BROTHER DON WOULD PREFER THAT HE BE THE ONE CALLED AND HE WILL CALL HIS NEICE WHEN PATIENT PASSES HE FEELS IT WOULD BE BETTER COMING FROM HIM. WILL CONTINUE TO MONITOR THIS PATIENT CLOSELY AND TREAT APPROPRIATELY FOR AIR HUNGER AND PAIN OR ANXIETY.
[2024-08-26] MEDS ORDERED: LORazepam 2 MG/ML 1ML Injection IV PRN ×2 (16:20→16:25)
--- NOTE | 2024-08-26 17:36 | NUR ---
PATIENT WAS MORE LETHARGIC THIS SHIFT. HIS RESPIRATIONS WERE SLOW AND SHALLOW. HE IS RECIEVING REGULAR PAIN MEDICATION. BEDSIDE RN REPORTED APENIC PAUSE FOLLOWED BY ABNORMAL JERKING MOVMENT. JUDY RN UPDATED PROVIDER. MONITOR FOR SEIZURE-LIKE ACTIVITY, AND WILL REQUEST ANTISEIZURE MEDICATIONS APPROPRIATE.
--- NOTE | 2024-08-27 04:42 | NUR ---
COMFORT CARE SHIFT SUMMARY PATIENT HAS NOT BEEN ALERT AND NOT ORIENTED. PATIENT HAS BEEN RESTING COMFORTABLY. PATIENT HAS BEEN TURNED Q2. PATIENT HAS BEEN MEDICATED FOR PAIN/ AIR HUNGER ONCE THIS SHIFT. BED IN LOCKED AND LOWEST POSITION. CALL LIGHT IN PLACE. WILL MONITOR UNTIL SHIFT CHANGE.
--- NOTE | 2024-08-27 09:59 | NUR ---
REPORT RECEIVED, PT ON COMFORT CARE LAYING QUIETLY DCREASED RESPIRATION. PT WAS REPOSITIONED AND DEEP SUCTIONED. THICK WHITE SPUTUM RETREIVED. PT LOOKS COMFORTABLE, NO FAMILY AT BEDSIDE AT THIS TIME.
--- NOTE | 2024-08-27 13:16 | NUR ---
DOUBLE VERIFICAION TOD 1250.
--- NOTE | 2024-08-27 14:34 | NUR ---
MORNING VISIT APX 1150 CACHETIC, JAUNDICE, DIFFUSE NON-PITTING EDEMA. LABORED, NORING RESPIRATIONS. ORAL CARE PROVIDED PRIOR TO ROXANOL ADMINISTRATION BY COVERING RN. GAG REFLEX STILL INTACT. WARM WASH CLOTH TO EYES. WASHED FACE, NECK AND CHEST. UPDATE PROVIDED TO PRIMARY RN.
== END 2024-08-27 12:40 | DRG 432 ==
LOC: ER 16:44 → ERHOLD 16:45 → MEDS 16:45 → ERHOLD 16:45 → PCU 08-20 18:02 → MEDS 08-21 15:54
PROVIDERS: Internal Medicine; Nurse Practitioner Acute Care; Student in an Organized Health Care Education/Training Program; ADMIT Internal Medicine
PROC: HZ2ZZZZ Detoxification Services for Substance Abuse Treatment (ICD-10-PCS; principal; 2024-08-19)
PROC: 3E03329 Introduction of Other Anti-infective into Peripheral Vein, Percutaneous Approach (ICD-10-PCS; 2024-08-19)
DX: K70.31 Alcoholic cirrhosis of liver with ascites (principal); E43 Unspecified severe protein-calorie malnutrition; G92.8 Other toxic encephalopathy; I81 Portal vein thrombosis; Z66 Do not resuscitate; Z51.5 Encounter for palliative care; Z59.00 Homelessness unspecified; E87.20 Acidosis, unspecified; E87.1 Hypo-osmolality and hyponatremia; K76.6 Portal hypertension; F10.239 Alcohol dependence with withdrawal, unspecified; K55.1 Chronic vascular disorders of intestine; E88.A Wasting disease (syndrome) due to underlying condition; D64.9 Anemia, unspecified; F15.10 Other stimulant abuse, uncomplicated; K64.8 Other hemorrhoids; F17.210 Nicotine dependence, cigarettes, uncomplicated; Y90.8 Blood alcohol level of 240 mg/100 ml or more; E83.39 Other disorders of phosphorus metabolism; E87.6 Hypokalemia; J43.9 Emphysema, unspecified; R29.6 Repeated falls; E83.51 Hypocalcemia; E87.8 Other disorders of electrolyte and fluid balance, not elsewhere classified; K70.11 Alcoholic hepatitis with ascites; F10.229 Alcohol dependence with intoxication, unspecified; T43.651A Poisoning by methamphetamines accidental (unintentional), initial encounter; T51.0X1A Toxic effect of ethanol, accidental (unintentional), initial encounter; Z91.148 Patient's other noncompliance with medication regimen for other reason; Z71.51 Drug abuse counseling and surveillance of drug abuser; Z71.41 Alcohol abuse counseling and surveillance of alcoholic; Z79.01 Long term (current) use of anticoagulants; Z79.891 Long term (current) use of opiate analgesic; Z79.899 Other long term (current) drug therapy; Z87.81 Personal history of (healed) traumatic fracture; Z98.890 Other specified postprocedural states; Z68.25 Body mass index [BMI] 25.0-25.9, adult
CPT/HCPCS: 0241U; 36415; 70450; 71045; 72125; 74177; 80053; 80076; 80320; 81001; 82140; 83605; 83735; 84100; 84145; 85025; 85610; 85730; 87040; 87086; 93005; 93010; 94640; 94664; 94760; 94762; 96361; 96365-59; 96366; 96367; 96375; 97116; 97162; 99285-25; A9270; C1751; G0378; J0696; J1940; J2060; J3475; J3480; J7030; J7060; Q9967